=== PATIENT | female | born 1970 | race Caucasian/White ===

== ENCOUNTER 2017-10-14 20:04 | Emergency (ER) | payer BC ==
[~2017-10-14] VITALS: Ht 172.7 cm; Wt 90.0 kg
[~2017-10-14 20:04] MED LIST: LORTAB 5 OR; NO HOME MEDS; TYLENOL500 MG OR
[2017-10-14 21:57] LABS: HEMATOCRIT 41.1 % (37.0-47.0); HEMOGLOBIN 14.1 g/dl (12.0-16.0); IMMATURE GRANULOCYTES 0.2 % (0.0-1.0); MEAN CELL VOLUME 95.1 fL CALC (80.0-100.0); MEAN CORPUSCULAR HGB 32.6 pG CALC (26.0-32.0); MEAN CORPUSCULAR HGB CONC 34.3 g/L CALC (32.0-36.0); NEUT# 3.23 thou/uL (2.00-7.15); RED BLOOD COUNT 4.32 mill/uL (4.20-5.60); RED CELL DISTRI WIDTH 12.5 % (11.5-15.5); URINE BILIRUBIN - DIPSTICK NEGATIVE (NEGATIVE); URINE BLOOD DIPSTICK NEGATIVE (NEGATIVE); URINE COLOR YELLOW; URINE GLUCOSE - DIPSTICK NEGATIVE (NEGATIVE); URINE KETONE NEGATIVE (NEGATIVE); URINE LEUK ESTERASE NEGATIVE (NEGATIVE); URINE NITRITE - DIPSTICK NEGATIVE (Negative); URINE PROTEIN - DIPSTICK NEGATIVE (NEG-TRACE); URINE UROBILINOGEN - DIPSTICK 0.2 E.U./dL (0.2)
[2017-10-14 21:59] LABS: URINE CLARITY CLEAR
[2017-10-14 22:09] LABS: ALBUMIN 4.7 g/dL (3.2-5.0); ALKALINE PHOSPHATASE 85 u/l (38-126); AMYLASE 61 u/l (30-110); ANION GAP 16 (6-22 (CALC)); BILIRUBIN, TOTAL 0.3 mg/dL (0.0-1.4); BUN 12 mg/dL (7-17); BUN/CREATININE RATIO 15 (12-20 (CALC)); CALCIUM 10.5 mg/dL (8.4-10.2); CARBON DIOXIDE 25 mmol/l (22-30); CHLORIDE 108 mmol/l (95-108); CREATININE 0.8 mg/dL (0.5-1.0); GFR > 60 ML/MIN (>=60 (CALC)); GFR FOR AFR.AMER. > 60 ML/MIN (>=60 (CALC)); GLUCOSE 101 mg/dL (65-105); LIPASE 181 u/l (23-300); POTASSIUM 3.5 mmol/l (3.5-5.1); SGOT/AST 51 u/l (14-36); SGPT/ALT 95 u/l (9-52); SODIUM 145 mmol/l (137-146); TOTAL PROTEIN 7.2 g/dL (6.3-8.2)
[2017-10-14 22:18] LABS: MYOGLOBIN 27 ng/mL (0 - 62)
[2017-10-14] MEDS ORDERED: ULTRAM50 M1 PO (22:52)
[2017-10-14] MEDS ORDERED: FLEXERIL PO (22:52)
[2017-10-14 23:02] VITALS: BP 156/93
== END 2017-10-14 23:19 | disposition home or self-care (01) | DRG 552 ==
LOC: ED 20:04
PROVIDERS: Emergency Medicine
DX: M47.816 Spondylosis without myelopathy or radiculopathy, lumbar region (principal); F17.210 Nicotine dependence, cigarettes, uncomplicated; I10 Essential (primary) hypertension; K21.9 Gastro-esophageal reflux disease without esophagitis